=== PATIENT | female | born 1995 | race American Indian/Alaskan Native ===

== ENCOUNTER 2021-09-13 08:05 | Outpatient (CLI) | payer MEDICAID ==
[2021-09-13 09:24] VITALS: BP 122/63
[2021-09-13] MEDS ORDERED: LACTATED RINGERS 1,000 ML IV SCH (10:30)
[2021-09-13] MEDS ORDERED: LACTATED RINGERS 500 ML IV ONE (10:30)
[2021-09-13 10:58] LABS: Hematocrit 31.9 % (30.3-42.9); Hemoglobin 10.8 gm/dl (10.1-14.3); Mean Corpuscular HGB Conc 34 % (30-34); Mean Corpuscular Volume 95 fl (79-97); Platelet Count 175 K/mm3 (140-440); Red Blood Count 3.37 M/mm3 (3.65-5.03); Red Cell Distribution Width 12.7 % (13.2-15.2)
[2021-09-13 11:03] LABS: Bilirubin,Urine NEG (Negative); Blood,Urine NEG (Negative); Color,Urine Yellow (Yellow); Mucus,Urine 2+ /HPF; Urobilinogen,Urine < 2.0 mg/dL (<2.0)
== END 2021-09-13 16:20 | disposition home or self-care (01) ==
LOC: TRG 08:05 → APU 08:06 → TRG 16:20
PROVIDERS: ATTEND Obstetrics & Gynecology
DX: O98.512 Other viral diseases complicating pregnancy, second trimester (principal); U07.1 COVID-19; Z3A.22 22 weeks gestation of pregnancy
CPT/HCPCS: 36415; 81001; 85027; J7120; U0003